=== PATIENT | male | born 1965 | race Caucasian/White ===

== ENCOUNTER 2021-07-08 12:28 | Emergency (ER) | payer OTHER, SELFPAY ==
--- NOTE | ~2021-07-08 | XR_ITS ---
EXAMINATION: XR finger 1st LT min 2V DATE: 07/08/2021 12:45 INDICATION: Left thumb laceration. TECHNIQUE: 3 views of left thumb were obtained. COMPARISON: None. FINDINGS: There is a comminuted fracture of tuft of first distal phalanx in near-anatomic alignment. There is mild osteoarthritis of first carpometacarpal joint, first metacarpophalangeal joint, and fir st interphalangeal joint. IMPRESSION: 1. Comminuted fracture of tuft of first distal phalanx. Reviewed, dictated and finalized at location A.
--- NOTE | 2021-07-08 12:36 | ED.UPPEXIN ---
HPI - Extremity Injury (Upper) General Chief Complaint: Extremity Injury, Upper Stated Complaint: thumb injury Time Seen by Provider: 07/08/21 12:35 History of Present Illness HPI narrative: 56-year-old male presents to the [facility] with complaints of a left thumb injury. States it occurred yesterday, about 24 hours prior to arrival. Hit it with a meat [place] and was unable to get the bleeding stopped so he used an entire tube of superglue and paper towels to get the bleeding to stop. Unknown last tetanus. Sensation intact distal to injury. Full ROM of the thumb. Capillary refill distal to injury under 2 seconds. Thumbnail and surrounding tissue covered in paper towel with superglue. Related Data Home Medications Medication Instructions Recorded Confirmed gabapentin 600 mg PO TID 07/08/21 07/08/21 lamotrigine 100 mg PO DAILY 07/08/21 07/08/21 lorazepam 1 mg PO QID 07/08/21 07/08/21 sertraline 150 mg PO DAILY 07/08/21 07/08/21 tenofovir disoproxil fumarate 300 mg PO DAILY 07/08/21 07/08/21 trazodone 50 mg PO HS 07/08/21 07/08/21 Allergies Allergy/AdvReac Type Severity Reaction Status Date / Time Sulfa (Sulfonamide AdvReac Unknown Verified 07/08/21 15:32 Antibiotics) Review of Systems Review of Systems: All systems reviewed & are unremarkable except as noted in HPI and below Constitutional: Constitutional: Reports no additional constitutional complaints Eyes: Eyes: Reports no additional eye complaints ENT: Reports system reviewed and no additional complaints, except as documented Cardiovascular: Cardiovascular: Reports no additional cardiovascular complaints and Denies chest pain Respiratory: Respiratory: Reports no additional respiratory complaints, Denies cough and Denies dyspnea Gastrointestinal: Gastrointestinal: Reports no additional gastrointestinal complaints, Denies abdominal pain and Denies nausea Musculoskeletal: Musculoskeletal: Reports as per HPI Comments: pain swelling and wound to the distal thumb, left hand. Integumentary/Breasts: Skin/Breast: Reports as per HPI, Reports nail changes (left thumb ) and Reports wounds Comments: Laceration left thumb involving base of nail Neurologic: Reports system reviewed and no additional complaints, except as documented Psychiatric: Psychiatric: Reports no additional psychiatric complaints Allergic/Immunologic: Allergic/Immunologic: Reports no additional allergic/immunologic complaints [facility] Past Medical History Medical History (Updated 07/08/21 @ 15:30 by China Luo APRN) Anxiety and depression Chronic back pain Social History Social History (Updated 07/08/21 @ 13:52 by China Luo APRN) Gender identity (if verbalized by the patient): Male Comments At the time of my signature, I reviewed and agree with the nursing past medical, surgical, social, and family history. There is no relevant family history pertinent to the patient complaint. Exam Const: General: healthy appearing, no acute distress and alert Nutritional Appearance: well nourished and obese Orientation/consciousness: patient oriented x3 Limitations: no limitations HENMT: Head: normal to inspection Ears: external ears normal Eyes: Pupils: Equal, round and reactive pupils present Neck: Neck: normal visual inspection, no lymphadenopathy and no meningeal signs Chest: Chest palpation & inspection: normal inspection of the chest Resp: Effort & Inspection: normal respiratory effort and no use of accessory muscles Auscultation: clear to auscultation bilaterally, no crackles, no rales, no rhonchi and no wheezes Cardio: Rate: regular rate Rhythm: regular rhythm Back/Spine/Pelvis: Back: no CVA tenderness Skin: Wounds: wounds noted left distal thumb without odor, open and other (Surrounding bruising with swelling); no drainage and without any surrounding erythema Neuro: General: patient oriented x3, moves all extremities, no meningeal signs and no focal motor de
[2021-07-08 12:39] VITALS: BP 162/80; PULSE 70; RESP 16; TEMP 36.5; O2SAT 97
[2021-07-08] MEDS: TETANUS,DIPHTHERIA,AC PERTUSSIS ADULT (0.5 ML) BOOSTRIX IM (13:09)
[2021-07-08] MEDS: cefTRIAXone 1 GM, LIDOCAINE HCL 1% LOCAL INJ 2.1 ML IM (13:50)
== END 2021-07-08 14:59 | disposition home or self-care (01) ==
PROVIDERS: Emergency Provider Nurse Practitioner; PCP Internal Medicine
DX: S62.522B Displaced fracture of distal phalanx of left thumb, initial encounter for open fracture (principal); W27.8XXA Contact with other nonpowered hand tool, initial encounter; Z23 Encounter for immunization; F41.9 Anxiety disorder, unspecified; F32.A Depression, unspecified
CPT/HCPCS: 29130; 73140; 90471; 90715; 96372; 99214; G0463; J0696